=== PATIENT | male | born 1940 | race Caucasian/White ===

== ENCOUNTER 2017-03-26 09:39 | Day surgery (SDC) | payer OTHER, BC ==
[~2017-03-26] VITALS: Ht 177.8 cm; Wt 68.0 kg
[2017-03-26] MEDS ORDERED: LISINOPRIL20 MG PO (10:07)
[2017-03-26] MEDS ORDERED: DONEPEZIL HCL10 MG PO (10:08)
[2017-03-26] MEDS ORDERED: SIMVASTATIN20 MG PO (10:08)
[2017-03-26] MEDS ORDERED: FLUOXETINE HCL20 MG PO (10:08)
[2017-03-26] MEDS ORDERED: VITAMIN D31000 UNIT PO (10:09)
[2017-03-26] MEDS ORDERED: VITAMIN B125000 MCG PO (10:09)
[2017-03-26] MEDS ORDERED: ASPIRIN81 M2 PO (10:10)
[2017-03-26] MEDS ORDERED: POLYMYXIN B-TMP10 ML RIGHT EYE (10:11)
[2017-03-26 10:18] LABS: EOSINOPHIL (%) 1.4 % (0-5); EOSINOPHIL COUNT 0.1 K/uL (0-0.3); HEMATOCRIT 41.6 % (38.0-50.0); IMMATURE GRANULOCYTE (%) 0.1 % (0.0-0.7); INSTRUMENT ABS NEUTROPHIL CT 4.5 K/uL; MCH 33.6 PG (29.0-34.0); MCHC 33.7 G/DL (30.0-36.0); MCV 99.8 FL (86-99); MEAN PLAT.VOLUME 10.5 uM^3 (9.0-12.4); MONOCYTE (%) 8.4 % (3-12); MONOCYTE COUNT 0.6 K/uL (0-0.8); NEUTROPHIL (%) 62.3 % (45-76); NEUTROPHIL COUNT 4.5 K/uL (1.8-6.4); PLATELET COUNT 129 K/uL (156-360); RBC DIS.WIDTH-CV 13.2 % (11.8-14.6); RBC DIS.WIDTH-SD 48.5 % (39-53); RED BLOOD COUNT 4.17 M/uL (4.00-5.50); WHITE BLOOD COUNT 7.2 K/uL (4.1-10.2)
[2017-03-26 10:22] VITALS: BP 194/88
[2017-03-26 10:36] LABS: ANION GAP 8 MEQ/L (2-14); CHLORIDE 107 MEQ/L (99-109); POTASSIUM 4.2 MEQ/L (3.7-5.4); SAMPLE HEMOLYSIS CHECK 0; SAMPLE ICTERIC CHECK 0; SAMPLE LIPEMIA CHECK 0; SODIUM 146 MEQ/L (136-147); TOTAL BILIRUBIN 0.8 MG/DL (0.0-1.0)
[2017-03-26 10:42] LABS: ALKALINE PHOSPHATASE 66 IU/L (3-129); GFR ESTIMATE (CALCULATED) > 59 mL/min/; GLUCOSE 84 mg/dL (70-99); UREA NITROGEN (BUN) 26 mg/dL (9-23)
[2017-03-26 12:35] VITALS: BP 130/64
[2017-03-26 13:15] VITALS: BP 158/70
== END 2017-03-26 13:22 | disposition home or self-care (01) ==
LOC: SDC 09:39
PROVIDERS: Internal Medicine
DX: H33.41 Traction detachment of retina, right eye (principal); I10 Essential (primary) hypertension; Z87.891 Personal history of nicotine dependence; E78.00 Pure hypercholesterolemia, unspecified
CPT/HCPCS: 80053; 85025; J0360; J3010; J3300; J3370